=== PATIENT | female | born 1990 | race Caucasian/White ===

== ENCOUNTER 2017-11-24 18:47 | Emergency (ER) | payer OTHER, MEDICAID ==
[2017-11-24] MEDS: ADACEL/BOOSTRIX VACCINE (DIPHTH/PERTUSS/ACELL/TETANUS)0.5ML SYR (90715) IM (21:29)
[2017-11-24] MEDS: LIDOCAINE W/EPINEPHRINE 1% 20ML VIAL SC (21:30)
== END 2017-11-24 21:57 | disposition home or self-care (01) ==
LOC: M ED 18:47
DX: S61.411A Laceration without foreign body of right hand, initial encounter (principal); W25.XXXA Contact with sharp glass, initial encounter; Y92.099 Unspecified place in other non-institutional residence as the place of occurrence of the external cause; Y93.9 Activity, unspecified; Y99.9 Unspecified external cause status; Z88.1 Allergy status to other antibiotic agents
CPT/HCPCS: 90715

== ENCOUNTER 2018-03-16 06:16 | Emergency (ER) | payer SELFPAY, OTHER | END 2018-03-16 06:52 | disposition home or self-care (01) | LOC: M ED 06:16 | DX: J06.9 Acute upper respiratory infection, unspecified (principal); H65.03 Acute serous otitis media, bilateral; Z88.1 Allergy status to other antibiotic agents | CPT/HCPCS: 87880 ==